=== PATIENT | male | born 1940 | race Caucasian/White ===

== ENCOUNTER 2018-07-07 12:51 | Emergency (ER) | payer SELFPAY ==
[2018-07-07 13:56] LABS: ADD MAN DIFF? NO
[2018-07-07 14:08] LABS: BASOPHILS % 0.4 % (0.0-2.0); EOSINOPHILS # 0.6 10^3/ul (0.0-0.5); EOSINOPHILS % 12.4 % (0.0-7.0); HEMATOCRIT 38.5 % (42.0-52.0); LYMPHOCYTES # 0.6 10^3/ul (0.8-2.9); LYMPHOCYTES % 12.4 % (15.0-51.0); MEAN CORPUSCULAR HEMOGLOBIN 28.6 pg (29.0-33.0); MEAN CORPUSCULAR HGB CONC 31.2 g/dl (32.0-37.0); MEAN CORPUSCULAR VOLUME 91.9 fl (82.0-101.0); MEAN PLATELET VOLUME 10.6 fl (7.4-10.4); MONOCYTE # 0.6 10^3/ul (0.3-0.9); MONOCYTES % 11.8 % (0.0-11.0); NEUTROPHIL # 3.2 10^3/ul (1.6-7.5); NEUTROPHILS % 62.4 % (39.0-77.0); PLATELET COUNT 153 10^3/UL (140-415); RED BLOOD COUNT 4.19 10^6/ul (4.70-6.10); RED CELL DISTRIBUTION WIDTH 16.3 % (11.5-14.5)
[2018-07-07 14:08] LABS: WHITE BLOOD COUNT 5.2 10^3/ul (4.8-10.8)
[2018-07-07] MEDS: DIPHTH/TET/ACEL PERTUSS (ADULT) 0.5 ML VIAL IM* (14:26)
[2018-07-07 14:28] LABS: ANION GAP 9 (5-13); BLOOD UREA NITROGEN 105 mg/dl (7-20); CALCIUM 9.8 mg/dl (8.4-10.2); CARBON DIOXIDE 33 mmol/L (21-31); CHLORIDE 94 mmol/L (97-110); CREATININE 2.47 mg/dl (0.61-1.24); GLUCOSE 92 mg/dl (70-220); MAGNESIUM 2.5 mg/dl (1.7-2.5); POTASSIUM 4.2 mmol/L (3.5-5.1); SODIUM 136 mmol/L (135-144)
[2018-07-07 14:29] LABS: INR 1.31; PROTIME 16.4 Sec (11.9-14.9); PT RATIO 1.3
[2018-07-07 14:30] LABS: PARTIAL THROMBOPLASTIN TIME 35.5 Sec (23.0-35.0)
== END 2018-07-07 18:05 | disposition home or self-care (01) ==
LOC: E/R 12:51
DX: S01.81XA Laceration without foreign body of other part of head, initial encounter (principal); D64.9 Anemia, unspecified; I12.9 Hypertensive chronic kidney disease with stage 1 through stage 4 chronic kidney disease, or unspecified chronic kidney disease; N18.9 Chronic kidney disease, unspecified; E11.22 Type 2 diabetes mellitus with diabetic chronic kidney disease; W18.30XA Fall on same level, unspecified, initial encounter; Y92.9 Unspecified place or not applicable; Z23 Encounter for immunization; Z86.73 Personal history of transient ischemic attack (TIA), and cerebral infarction without residual deficits; Z79.4 Long term (current) use of insulin
CPT/HCPCS: 12013; 36415; 70450; 70486; 72125; 80048; 83735; 85025; 85610; 85730; 90471; 93005; 99285-25